=== PATIENT | female | born 1970 | race African-American/Black ===

== ENCOUNTER → 2016-06-03 | Outpatient (CLI) | payer BC ==
--- NOTE | 2016-06-03 11:46 | KCIC ---
PROCEDURE Pelvic and transvaginal ultrasound HISTORY Enlarged uterus. COMPARISON None FINDINGS Multiple transabdominal sonographic images of the pelvis are submitted. Uterus measured 14 x 7 by 9.2 centimeters. Endometrium is not seen as obscured by a mass of the uterine fundus centered in the myometrium although extent into the region of expected in the endometrial complex. Uterine mass is estimated at 7.7 x 9.5 x 7.3 centimeters. No free fluid is demonstrated. Transvaginal ultrasound: Right ovary measured 2.9 x 2.6 x 2.5 centimeters with normal low resistance vascularity. Left ovary measured 2.1 x 2.5 x 2.2 centimeters with normal low resistance vascularity. There is a mass of the uterus closer to the cervix up to 5.1 x 5.9 x 4 centimeters in size. Endometrium is not seen. There is again mass of the uterus closer to the fundus which obscures the endometrial complex. Uterine mass is poorly defined on this portion of exam. No free fluid is demonstrated. IMPRESSION 1. There is a large uterine mass closer to the uterine fundus which obscures the endometrial complex. There is another mass near the cervix. Findings are most likely due to fibroids. 2. No abnormality is identified of the ovaries. There is no free fluid. Electronically signed by: Dylon Aldridge MD (Jun 03, 2016 11:44:39)
--- NOTE | 2016-06-03 11:50 | KCIC ---
Bilateral digital screening mammograms with CAD: HISTORY COMPARISON Baseline exam. FINDINGS Breast density category B. The skin and nipples show no abnormalities. No abnormal lymph nodes are seen in the axilla. The breast parenchyma shows scattered fibroglandular density. There are no dominant masses, suspicious calcifications or architectural distortions. Benign appearing calcifications are present IMPRESSION No evidence of malignancy. Recommend routine annual mammographic screening. This study was interpreted with the benefit of Computerized Aided Detection (CAD). Mammography is not 100% sensitive in detecting breast cancer. Therefore, a self breast exam and a clinical breast exam are very important. A negative mammogram does not negate a clinically suspicious finding and should not result in a delay in biopsying a clinically suspicious abnormality. BI-RADS category 2. Benign. This patient's information has been entered into a reminder system for the patient to be notified with the results of this examination and a target date for her next mammograms. Electronically signed by: Yenifer Pena MD (Jun 03, 2016 11:48:59)
== END | disposition home or self-care (01) ==
LOC: KCIC US 09:48
PROVIDERS: ATTEND Obstetrics & Gynecology
DX: Z12.31 Encounter for screening mammogram for malignant neoplasm of breast (principal); N85.2 Hypertrophy of uterus
CPT/HCPCS: 76830; 76856; G0202; 77052; 77067

== ENCOUNTER 2016-09-10 17:01 | Emergency (ER) | payer BC ==
--- NOTE | 2016-09-10 17:37 | RAD ---
PROCEDURE CT head without contrast dated 09/10/2016. HISTORY Blurry vision. TECHNIQUE Routine axial imaging of the head was performed from skull base to vertex. No contrast administered.Exposure: One or more of the following individualized dose reduction techniques were utilized for this exam: 1. Automated exposure control. 2. Adjustment of the mA and/or kV according to patient size. 3. Use of iterative reconstruction technique. COMPARISON None. FINDINGS Ventricles and sulci within normal limits for age. No midline shift or mass effect. Brain parenchyma is of normal attenuation. No hemorrhage or extra-axial collection. Posterior fossa and brainstem unremarkable. Visualized paranasal sinuses and mastoid air cells are clear. No acute calvarial abnormality. IMPRESSION No evidence of acute intracranial abnormality. Electronically signed by: Alok Boyer (Sep 10, 2016 17:36:10)
--- NOTE | 2016-09-10 18:01 | PHYS DOC ---
Past Medical History Past Medical History: Asthma Additional Past Medical Histor: ureterine fibroids Additional Past Surgical Histo: umbilical hernia repair Alcohol Use: None Drug Use: None Adult General Chief Complaint Chief Complaint: NEURO SYMPTOMS/DEFICITS [facility] HPI Patient is a 46 year old female who presents with gradually worsening headache starting this morning typical of her usual headache, bilateral, achy, constant. States she was out at a store and trying to read, but her vision was blurry bilaterally for a few minutes, so she came for evaluation. She states similar symptoms occurred 1 month ago with a bad headache as well. She notes taking medication prior to coming and her headache is improving at this time. She denies dizziness, numbness, tingling, weakness, speech changes, difficulty swallowing, chest pain, palpitations, dyspnea, abdominal pain, nausea or vomiting, diarrhea, fever or chills. Review of Systems Review of Systems Constitutional: Denies fever or chills [] Eyes: Denies change in visual acuity, redness, or eye pain [] HENT: Denies nasal congestion or sore throat [] Respiratory: Denies cough or shortness of breath [] Cardiovascular: No additional information not addressed in HPI [] GI: Denies abdominal pain, nausea, vomiting, bloody stools or diarrhea [] : Denies dysuria or hematuria [] Musculoskeletal: Denies back pain or joint pain [] Integument: Denies rash or skin lesions [] Neurologic: Denies headache, focal weakness or sensory changes [] Endocrine: Denies polyuria or polydipsia [] Current Medications Current Medications Current Medications Medications (Trade) Dose Ordered Sig/Jeet Start Time Stop Time Status Last Admin Dose Admin Acetaminophen (Tylenol) 500 mg 1X ONCE 09/10/16 18:15 09/10/16 18:16 DC 09/10/16 17:52 500 MG Allergies Allergies Allergies Coded Allergies Type Severity Reaction Last Updated Verified ibuprofen Allergy Intermediate 09/10/16 Yes Physical Exam Physical Exam Constitutional: Well developed, well nourished, no acute distress, non-toxic appearance. [] HENT: Normocephalic, atraumatic, bilateral external ears normal, oropharynx moist, no oral exudates, nose normal. [] Eyes: PERRLA, EOMI, conjunctiva normal, no discharge. [] Neck: Normal range of motion, no tenderness, supple. [] Cardiovascular:Heart rate regular rhythm [] Lungs & Thorax: Bilateral breath sounds clear to auscultation [] Abdomen: Bowel sounds normal, soft, no tenderness. [] Skin: Warm, dry, no erythema, no rash. [] Back: No tenderness, no CVA tenderness. [] Extremities: No tenderness, ROM intact, no edema. [] Neurologic: Alert and oriented X 3, normal motor function, normal sensory function, no focal deficits noted, cranial nerves II through XII intact, no extremity drift, no nystagmus. [] Psychologic: Affect normal, judgement normal, mood normal. [] Current Patient Data Vital Signs Vital Signs Date Time Temp Pulse Resp B/P Pulse Ox O2 Delivery O2 Flow Rate FiO2 09/10/16 18:09 81 16 131/83 99 Room Air 09/10/16 17:01 97.9 97.9 EKG EKG EKG as interpreted by me as normal sinus rhythm, rate 84, no ST-T changes, normal intervals, no ectopy Radiology/Procedures Radiology/Procedures Head CT without contrast IMPRESSION No evidence of acute intracranial abnormality. Electronically signed by: Alok Boyer (Sep 10, 2016 17:36:10) Course & Med Decision Making Course & Med Decision Making Pertinent Labs and Imaging studies reviewed. (See chart for details) Workup is unremarkable. She remains asymptomatic at this time other than improving headache. Suspect migraine-type headache versus other. She would like to go home and follow-up with her primary care doctor and neurology clinic. Return precautions given. She understands and agrees with plan. Dragon Disclaimer Vivek Disclaimer This electronic medical record was generated, in whole or in part, using a voice recognition dictation system. Departure Departure Impression: Primary Impression: Headache Additional Impression: Blurry vision, bilateral Disposition: 01 HOME, SELF-CARE Condition: STABLE Referrals: ORESTES GODWIN MD Patient Instructions: Headache, FAQs Additional Instructions: Take Tylenol as needed for pain. Follow-up with your primary care doctor and neurology clinic. Please call for appointment. Return for any concerns. Problem Qualifiers Primary Impression: Headache Headache type: unspecified Headache chronicity pattern: episodic headache Intractability: not intractable Qualified Code: R51 - Headache Shari MG MD Sep 10, 2016 18:01
[2016-09-10 18:09] VITALS: BP 131/83
[2016-09-10] MEDS ORDERED: ACETAMINOPHEN 500 MG TABLET PO ONE (18:15)
--- NOTE | 2016-09-11 10:27 | EKG ---
[facility] [address] [place] [address] Test Date: 2016-09-10 Test Time: 17:46:55 Pat Name: ARNOL PAN Department: Room: Gender: F Infant Toddler Lead Teacher: : 1970 Requested By: Shari MG Order Number: [id number] Reading MD: Chanda Nunez Measurements Intervals [place] Rate: 84 P: 31 NV: 146 QRS: -5 QRSD: 84 T: 24 QT: 356 QTc: 424 Interpretive Statements SINUS RHYTHM LEFTWARD AXIS QRS(T) CONTOUR ABNORMALITY CANNOT RULE OUT ANTEROSEPTAL MYOCARDIAL DAMAGE RI6.01 Unconfirmed report No previous ECG available for comparison Electronically Signed On 09-11-2016 17:37:54 CDT by Chanda Nunez
== END 2016-09-10 18:20 | disposition home or self-care (01) ==
LOC: ER 17:01
DX: R51 Headache (principal); H53.8 Other visual disturbances; J45.909 Unspecified asthma, uncomplicated; Z88.6 Allergy status to analgesic agent
CPT/HCPCS: 70450; 93005; 99284-25

== ENCOUNTER 2017-11-03 16:17 | Emergency (ER) | payer BC ==
[2017-11-03 16:45] LABS: ADD MAN DIFF? NO
[2017-11-03] MEDS: IV NORMAL SALINE 1000ML BAG 1,000 ML IV ×2 (16:45→16:46)
[2017-11-03 16:48] LABS: BASO % 1 % (0-3); EOS # 0.4 x10^3/uL (0.0-0.7); EOS % 5 % (0-3); HEMATOCRIT 40.2 % (36.0-47.0); HEMOGLOBIN 12.9 g/dL (12.0-15.5); LYMPH # 3.6 x10^3/uL (1.0-4.8); LYMPH % 41 % (24-48); MEAN CORPUSCULAR HEMOGLOBIN 23 pg (25-35); MEAN CORPUSCULAR HGB CONC 32 g/dL (31-37); MEAN CORPUSCULAR VOLUME 73 fL (79-100); MONO # 0.6 x10^3/uL (0.0-1.1); MONO % 7 % (0-9); NEUT # 4.2 x10^3uL (1.8-7.7); NEUT % 47 % (31-73); PLATELET COUNT 307 x10^3/uL (140-400); RED BLOOD COUNT 5.54 x10^6/uL (3.50-5.40); RED CELL DISTRIBUTION WIDTH 14.5 % (11.5-14.5); WHITE BLOOD COUNT 8.9 x10^3/uL (4.0-11.0)
[2017-11-03 16:59] LABS: ANION GAP 9 (6-14); BLOOD UREA NITROGEN 16 mg/dL (7-20); BUN/CREATININE RATIO 16 (6-20); CALCIUM 9.5 mg/dL (8.5-10.1); CARBON DIOXIDE 30 mmol/L (21-32); CHLORIDE 103 mmol/L (98-107); GFR 72.2; GLUCOSE 134 mg/dL (70-99); POTASSIUM 3.4 mmol/L (3.5-5.1); SODIUM 142 mmol/L (136-145)
[2017-11-03 17:06] LABS: ALBUMIN 3.7 g/dL (3.4-5.0); ALBUMIN/GLOBULIN RATIO 0.9 (1.0-1.7); ALK PHOS 190 U/L (46-116); ALT (SGPT) 36 U/L (14-59); AST (SGOT) 28 U/L (15-37); LIPASE 91 U/L (73-393); TOTAL BILIRUBIN 0.4 mg/dL (0.2-1.0); TOTAL PROTEIN 7.9 g/dL (6.4-8.2)
[2017-11-03 17:07] LABS: TROPONINI < 0.017 ng/mL (0.000-0.055)
[2017-11-03 17:14] LABS: THYROID STIM HORMONE (TSH) 0.932 uIU/mL (0.358-3.74)
[2017-11-03 17:15] LABS: CKMB INDEX 0.4 % (0-4); CKMB MASS 0.7 ng/mL (0.0-3.6); CREATINE KINASE 157 U/L (26-192)
[2017-11-03 17:15] LABS: NT-PRO BNP 61 pg/mL (0-124)
[2017-11-03 17:30] LABS: BILIRUBIN,URINE NEGATIVE (NEG); CLARITY,URINE CLEAR; COLOR,URINE YELLOW; GLUCOSE,URINE NEGATIVE (NEG); NITRITE,URINE NEGATIVE (NEG); PROTEIN,URINE NEGATIVE (NEG-TRACE); UROBILINOGEN,URINE 0.2 mg/dL (0.2 mg/dL)
[2017-11-03 17:36] LABS: AMPHETAMINE/METHAMPHETAMINE NEG (NEG); BARBITURATES NEG (NEG); BENZODIAZEPINES NEG (NEG); CANNABINOIDS NEG (NEG); COCAINE NEG (NEG); ETHANOL, URINE NEG (NEG); METHADONE NEG (NEG); OPIATES NEG (NEG); PHENCYCLIDINE NEG (NEG)
[2017-11-03 17:40] LABS: BACTERIA,URINE MODERATE /HPF (0-FEW); RBC,URINE 0 /HPF (0-2); SQUAMOUS EPITHELIAL CELL,UR MANY /LPF; WBC,URINE RARE /HPF (0-4)
== END 2017-11-03 20:04 | disposition home or self-care (01) ==
LOC: ER 16:17
DX: T67.5XXA Heat exhaustion, unspecified, initial encounter (principal); R74.8 Abnormal levels of other serum enzymes; J45.909 Unspecified asthma, uncomplicated; I10 Essential (primary) hypertension; Z88.6 Allergy status to analgesic agent; X58.XXXA Exposure to other specified factors, initial encounter; Y93.89 Activity, other specified; Y92.89 Other specified places as the place of occurrence of the external cause; Y99.8 Other external cause status
CPT/HCPCS: 36415; 71045; 80053; 80307; 81001; 82553; 83690; 83735; 83880; 84443; 84484; 85025; 87086; 93005; 96360; 96361; 99285-25; J7030

== ENCOUNTER → 2017-11-20 | Outpatient (CLI) | payer BC | END | disposition home or self-care (01) | LOC: US 05:57 | DX: K82.9 Disease of gallbladder, unspecified (principal); J45.909 Unspecified asthma, uncomplicated; R94.5 Abnormal results of liver function studies | CPT/HCPCS: 76700 ==

== ENCOUNTER → 2018-09-10 | Outpatient (CLI) | payer BC ==
[2017-11-03 19:52] VITALS: BP 125/81
--- NOTE | 2018-09-11 17:28 | RAD ---
DATE: 09/10/2018 EXAM: MAMMO OLIVIER SCREENING BILATERAL HISTORY: Routine screening COMPARISON: 06/03/2016 mammographic exam This study was interpreted with the benefit of Computerized Aided Detection (CAD). Breast Density: SCATTERED The breast parenchyma shows scattered fibroglandular densities. Breast parenchyma level B. FINDINGS: No new mass, calcification, or distortion of concern. IMPRESSION: Stable. BI-RADS CATEGORY: 1 NEGATIVE RECOMMENDED FOLLOW-UP: 12M 12 MONTH FOLLOW-UP PQRS compliance statement: Patient information was entered into a reminder system with a target due date in one year for the next mammogram. Mammography is a sensitive method for finding small breast cancers, but it does not detect them all and is not a substitute for careful clinical examination. A negative mammogram does not negate a clinically suspicious finding and should not result in delay in biopsying a clinically suspicious abnormality. "Our facility is accredited by the [employer] Mammography Program."
== END | disposition home or self-care (01) ==
LOC: MAMMO 13:35
PROVIDERS: ATTEND Internal Medicine
DX: Z12.31 Encounter for screening mammogram for malignant neoplasm of breast (principal)
CPT/HCPCS: 77063; 77067

== ENCOUNTER → 2020-08-26 | Outpatient (CLI) | payer BC ==
[2017-11-03 19:52] VITALS: BP 125/81
--- NOTE | 2020-08-26 16:45 | RAD ---
BILATERAL SCREENING MAMMOGRAM, 3-D History: Routine screening. Comparison: Bilateral mammogram September 10, 2018 and prior years. Technique: MLO and CC digital tomosynthesis (3D) images obtained. Radiologist reviewed these images on dedicated workstation. Findings: Breast Tissue Density A : The breasts are almost entirely fatty. There are no dominant masses, suspicious microcalcifications or architectural distortion. IMPRESSION: No mammographic evidence of malignancy. Recommend routine screening. BI-RADS category 1: Negative. The images were reviewed with computer-aided detection. Patient information is entered into reminder system with a target due date for the next [facility]. Mammography is the most sensitive method for finding small breast cancers, but it does not detect the m all and is not a substitute for careful clinical examination. A negative mammogram does not negate a clinically suspicious finding and should not result in delay in biopsying a clinically suspicious a bnormality. "Our facility is accredited by the [employer] Mammography Program." Electronically signed by: Olvin Corona MD (08/26/2020 4:43 PM) [id number]
== END ==
LOC: MAMMO 15:21
PROVIDERS: ATTEND Internal Medicine
DX: Z12.31 Encounter for screening mammogram for malignant neoplasm of breast (principal)
CPT/HCPCS: 77063; 77067

== ENCOUNTER → 2020-12-31 | Outpatient (CLI) | payer BC ==
[2017-11-03 19:52] VITALS: BP 125/81
--- NOTE | 2020-12-31 13:14 | KCIC ---
EXAM: RIGHT UPPER QUADRANT ULTRASOUND. HISTORY: Elevated liver enzymes. COMPARISON: None. FINDINGS: Sonographic evaluation of the right upper quadrant was performed. Hyperechogenicity of the hepatic parenchyma is consistent with diffuse hepatic steatosis. There are n o focal lesions. The gallbladder is unremarkable without evidence of stones, wall thickening or pericholecystic fluid. There is no sonographic Jhaveri sign. The common duct measures 3 mm. The visualized portions of the head and body of the pancreas reveal no abnormality. The right kidney measures 10.0 cm. Cortical thickness and echogenicity are preserved. There is no hyd ronephrosis. The visualized portions of the abdominal aorta and inferior vena cava are grossly patent and normal i n caliber. IMPRESSION: 1. Diffuse hepatic steatosis. Electronically signed by: Jenna Hood MD (12/31/2020 1:12 PM) [id number]
== END ==
LOC: KCIC US 12:24
PROVIDERS: ATTEND Internal Medicine
DX: K76.0 Fatty (change of) liver, not elsewhere classified (principal); R94.5 Abnormal results of liver function studies; I10 Essential (primary) hypertension; R74.8 Abnormal levels of other serum enzymes
CPT/HCPCS: 76705

== ENCOUNTER → 2021-07-23 | Outpatient (CLI) | payer BC ==
[2017-11-03 19:52] VITALS: BP 125/81
[~2021-07-23] MED LIST: CONTRAST GIVEN. MC PRN; IOHEXOL 240 MG/ML 50ML VIAL. PO ONE; IOHEXOL 300 MG/ML 100ML VIAL. IV ONE
--- NOTE | 2021-07-23 17:29 | RAD ---
CT abdomen pelvis with contrast dated 07/23/2021. COMPARISON: None. Clinical indication: Pain. TECHNIQUE: Contiguous axial imaging the abdomen pelvis performed after the administration of 75 cc Omnipaque 300 . One or more of the following individualized dose reduction techniques were utilized for this examinat ion: 1. Automated exposure control 2. Adjustment of the mA and/or kV according to patient size 3. Use of iterative reconstruction technique. FINDINGS: Limited images of lung bases are clear. Heart size within normal limits. No pleural or pericardial ef fusion. Liver, spleen, adrenal glands, kidneys and gallbladder are unremarkable. No hydronephrosis. Pancreas is somewhat atrophic but otherwise unremarkable. No peripancreatic inflammatory changes. Partially opacified GI tract normal in caliber and contour. No focal bowel wall thickening. There is a prominent left lateral abdominal wall hernia that contains small bowel loops. Hernia neck is wide, measuring up to 3.5 cm. No inflammatory changes in the mesenteric fat. No evidence of bowel obstructi on. Appendix normal in caliber. No ascites or lymphadenopathy. Abdominal aorta normal in caliber. Images of pelvis show nondistended urinary bladder. The uterus is surgically absent. No free fluid or pelvic lymphadenopathy. Bone window show no acute findings. Mild multilevel spondylosis. IMPRESSION: 1. Large ventral hernia at the left lateral abdominal wall containing loops of small bowel. No eviden ce of bowel obstruction. 2. Otherwise no acute findings. Normal appendix. 3. Status post hysterectomy. Electronically signed by: Alok Boyer MD (07/23/2021 5:26 PM) [facility]
== END ==
LOC: CT 15:54
PROVIDERS: ATTEND Internal Medicine
DX: K43.9 Ventral hernia without obstruction or gangrene (principal); K86.89 Other specified diseases of pancreas; M47.817 Spondylosis without myelopathy or radiculopathy, lumbosacral region; Z90.710 Acquired absence of both cervix and uterus
CPT/HCPCS: 74177; Q9966; Q9967